=== PATIENT | male | born 1990 | race Caucasian/White ===

== ENCOUNTER 2019-10-04 23:46 | Emergency (ER) | payer SELFPAY ==
[~2019-10-04] VITALS: Ht 188 cm; Wt 89.0 kg
--- NOTE | 2019-10-05 00:07 | NUR ---
PT STATED "HE TOOK 1X M30 BLUE FENTNYL PILL PO." ISABELAAMA STATED "PT WAS FOUND DOWN BY FRIENDS AND DID CPR, [facility] GAVE BVM BRETHS AND 2MG NARCAN" PT A/O X4 WITH GCS 15 AT PT ER CONTACT.
[2019-10-05 00:16] LABS: BASOPHILS # (AUTO) 0.03 x10^3/uL (0-0.1); BASOPHILS % (AUTO) 0 % (0-1); EOSINOPHILS # (AUTO) 0.01 x10^3/uL (0-0.4); EOSINOPHILS % (AUTO) 0 % (1-7); LYMPHOCYTES % (AUTO) 5 % (22-44); MD NO; MEAN CORPUSCULAR HEMOGLOBIN 31.3 pg (27.5-34.5); MEAN CORPUSCULAR HGB CONC 32.6 g/dL (33.2-36.2); MEAN CORPUSCULAR VOLUME 95.9 fL (81-97); MEAN PLATELET VOLUME 7.8 fL (7.4-10.4); MONOCYTES # (AUTO) 0.34 x10^3/uL (0.2-0.8); MONOCYTES % (AUTO) 3 % (2-9); NEUTROPHILS # (AUTO) 10.03 x10^3/uL (1.8-6.8); NEUTROPHILS % (AUTO) 92 % (42-75); PLATELET COUNT 214 x10^3/uL (130-400); RED CELL DISTRIBUTION WIDTH 13.9 % (9.4-14.8)
[2019-10-05 00:25] LABS: ALANINE AMINOTRANSFERASE 50 U/L (12-78); ALBUMIN 3.7 g/dL (3.4-5.0); ANION GAP 12 mmol/L (5-15); CALCIUM 8.2 mg/dL (8.5-10.1); CHLORIDE 102 mmol/L (98-107); CREATININE 1.76 mg/dL (0.7-1.3)
[2019-10-05 00:27] LABS: ALKALINE PHOSPHATASE 69 U/L (45-117); BILIRUBIN,TOTAL 0.4 mg/dL (0.2-1.0); TOTAL PROTEIN 8.2 g/dL (6.4-8.2)
[2019-10-05] MEDS ORDERED: NALOXONE 1 MG/ML, 2ML ONE (00:29)
--- NOTE | 2019-10-05 00:42 | NUR ---
Pt found hypoxic, pts oxygen tritrated up. Trauma RN Made aware.
--- NOTE | 2019-10-05 00:44 | NUR ---
PT OKED BOX CHIPPER TO TALK TO PT GRANDMOTHER, PT GRANDMOTHER STATED "PT WAS TRANSPORTED YESTERDAY FOR A OD AT WORK AND WAS TAKEN TO [facility] AND WAS GIVEN NARCAN AND THAT SHE WANTS TO HAVE A INTERVENTION WITH PT".
--- NOTE | 2019-10-05 03:47 | NUR ---
PT PROVIDED WITH WATER PER REQUEST. GREGORIO
[2019-10-05 05:55] VITALS: BP 132/74
== END 2019-10-05 05:58 | disposition home or self-care (01) ==
LOC: ED 10-05 02:09
DX: T40.4X1A Poisoning by other synthetic narcotics, accidental (unintentional), initial encounter (principal); R41.82 Altered mental status, unspecified; F11.129 Opioid abuse with intoxication, unspecified; R09.02 Hypoxemia; R00.0 Tachycardia, unspecified; Z72.9 Problem related to lifestyle, unspecified; Y92.9 Unspecified place or not applicable
CPT/HCPCS: 36415; 80053; 80307; 85025; 93005; 99291